=== PATIENT | female | born 2000 | race Caucasian/White ===

== ENCOUNTER 2019-03-10 15:23 | Emergency (ER) | payer OTHER, SELFPAY ==
[2019-03-10 15:26] VITALS: BP 123/74; PULSE 90; RESP 14; TEMP 36.1; O2SAT 99; BMI 29.3
--- NOTE | 2019-03-10 15:43 | ED.VISSUMM ---
- ER Visit Summary Date of Service: 03/10/19 Chief Complaint: [Laceration left index finger] History of Present Illness: The patient is a 19 F [presents the emergency department with a laceration to left index finger that occurred about half an hour ago. Patient states that she was using scissors when she accidentally cut a piece of her finger off. Patient unsure of her last tetanus.] Physical Examination: [Left index finger-patient has a avulsion of skin to the distal phalanx pulp measuring approximately 5 x 3 cm. This is relatively superficial. There is no active bleeding currently. Neurovascular intact. No involvement of the nail or nailbed.] Test Results: [None indicated] Emergency Department Course and Treatment: [Patient was given Adacel tetanus booster. Patient had a small amount of Gelfoam applied to the wound and then a clean dressing was applied.] Treatment Plan: [Patient to follow-up for a wound check in 3 to 5 days. Patient advised to return if increasing pain, redness, swelling purulent drainage, or condition should worsen anyway.] Disposition: [Discharged home in stable condition.] Impression: [Left index finger skin avulsion with Gelfoam repair] This note was generated with [employer] dictation software. It may contain incorrect words, spelling, and punctuation that were not noted in review of the chart prior to signing ED Disposition - Plan for ED Patient: Referrals: NOT,DEFINED [Primary Care Provider] -
--- NOTE | 2019-03-10 15:45 | ED.DEP ---
ED Disposition - Plan for ED Patient: Instructions: Skin Avulsion Referrals: NOT,DEFINED [Primary Care Provider] - 3-5 Days
[2019-03-10] MEDS: Diphth,Pertuss(Acell),Tet Vac 0.5 ML Vial IM (15:49)
[2019-03-10 16:05] VITALS: RESP 16
== END 2019-03-10 16:15 | disposition home or self-care (01) ==
LOC: ED 15:55
PROVIDERS: Emergency Provider Emergency Medicine
DX: S61.211A Laceration without foreign body of left index finger without damage to nail, initial encounter (principal); W45.8XXA Other foreign body or object entering through skin, initial encounter; Y93.9 Activity, unspecified; Y92.9 Unspecified place or not applicable; Y99.9 Unspecified external cause status; Z23 Encounter for immunization
CPT/HCPCS: 12002; 90715; 99283